=== PATIENT | female | born 1990 | race African-American/Black ===

== ENCOUNTER 2024-09-09 14:15 | Emergency (ER) | payer OTHER ==
[~2024-09-09] VITALS: Ht 167.6 cm; Wt 91.0 kg
[2024-09-09 15:21] LABS: HEMATOCRIT. 32.5 % (36.0-48.0); HEMOGLOBIN. 11.1 g/dL (12.0-16.0); MEAN CORPUSCULAR HEMOGLOBIN 30.8 pg (28.0-32.0); MEAN CORPUSCULAR VOLUME 90.5 fL (81.0-99.0); MEAN PLATELET VOLUME 9.2 fl (7.4-10.4); PLATELET 200 x1000/uL (130-400); RED BLOOD CELL COUNT 3.59 mill/uL (4.2-5.4); RED CELL DISTRIBUTION WIDTH 14.2 % (11.6-14.6); WHITE BLOOD COUNT 6.2 x1000/uL (4.5-11.0)
[2024-09-09 15:24] LABS: DIFFERENTIAL COMMENT 1
[2024-09-09 15:33] LABS: CHLORIDE 105 mEq/L (98-107); POTASSIUM 3.4 mEq/L (3.5-5.1); SODIUM 134 mEq/L (136-145)
[2024-09-09 15:35] LABS: CALCIUM 9.1 mg/dL (8.7-10.4); CARBON DIOXIDE 21 mEq/L (21-32)
[2024-09-09 15:40] LABS: CREATININE 0.9 mg/dL (0.6-1.0); GLUCOSE 114 mg/dL (70-105); UREA NITROGEN BLOOD 6 mg/dL (9-23)
[2024-09-09 15:41] LABS: PLATELET ESTIMATE NORMAL
[2024-09-09 15:42] LABS: TROPONIN I HIGH SENSITIVITY < 4 ng/L (3.0-34)
[2024-09-09] MEDS: ACETAMINOPHEN 1000MG/100ML 100 ML IV ONE (15:55)
[2024-09-09] MEDS: IPRATROPIUM/ALBUTEROL 0.5-3(2.5)MG/3ML NEB HHN ONE (20:43)
[2024-09-09 20:45] VITALS: PULSE 101; RESP 20; O2SAT 99
[2024-09-09 21:04] VITALS: BP 110/67; PULSE 90; RESP 13; TEMP 36.9; O2SAT 100
== END 2024-09-09 21:24 | disposition short-term general hospital (02) ==
LOC: ER 14:55 → CANBEDREQ 17:54 → ER 21:24
DX: J11.1 Influenza due to unidentified influenza virus with other respiratory manifestations (principal); J45.909 Unspecified asthma, uncomplicated; R00.0 Tachycardia, unspecified; Z20.822 Contact with and (suspected) exposure to COVID-19; Z91.040 Latex allergy status; Z88.8 Allergy status to other drugs, medicaments and biological substances
CPT/HCPCS: 80048; 83880; 85025; 84484; 87804 ×2; 36415; 71045; 94640; 93005; 96365; 96366; 99285; 87426; Z7610 ×2; J0131